=== PATIENT | female | born 1960 | race Caucasian/White ===

== ENCOUNTER → 2017-10-06 | Outpatient (CLI) | payer OTHER ==
[~2017-10-06] VITALS: Ht 152.4 cm; Wt 81.6 kg
[~2017-10-06] MED LIST: COZAAR100 MG; DICLOFENAC POTA50 MG PO; DIPROLENE AF 0.50 GM TP; FLEXERIL 10 MG PO; GILTUSS TR TAB1 EACH PO; HYZAAR 100-12.1 EACH PO; HYZAAR 100-121 UDTAB; HYZAAR 100-121 UDTAB PO; IPRAT-ALBUT 0.5-3 ML IH; LEVAQUIN500 MG PO; NORFLEX100MG PO; NORVASC10 MG PO; PRILOSEC 40 MG PO; PRILOSEC10 MG; PRILOSEC40 MG PO; PROVENTIL3 ML/2.5 M IH; SINGULAIR10 MG PO; TOBREX5 ML OP; TORADOL60 MG IM; TRAMADOL HCL50 MG PO; VIT C; VOLTAREM 50 MG PO; ZANTAC300 MG PO; ZITHROMAX500 MG PO; ZYRTEC10 MG PO; [UNRECOGNIZED DRUG - OTHER]
== END | disposition home or self-care (01) ==
LOC: PPHC 16:05
DX: Z00.8 Encounter for other general examination (principal); Z76.0 Encounter for issue of repeat prescription

== ENCOUNTER → 2017-11-23 | Emergency (ER) | payer OTHER ==
[~2017-11-23] VITALS: Ht 167.6 cm; Wt 81.2 kg
== END | disposition home or self-care (01) ==
LOC: ER 09:13
DX: R10.32 Left lower quadrant pain (principal); K58.8 Other irritable bowel syndrome; K80.80 Other cholelithiasis without obstruction

== ENCOUNTER → 2017-11-24 | Outpatient (CLI) | payer OTHER | END | disposition home or self-care (01) | LOC: PPHC 09:50 | DX: Z00.8 Encounter for other general examination (principal) ==

== ENCOUNTER 2017-11-30 11:25 | Outpatient (CLI) | payer OTHER | END 2017-11-30 11:36 | disposition home or self-care (01) | LOC: LAB 11:25 | DX: K80.10 Calculus of gallbladder with chronic cholecystitis without obstruction (principal); Z01.812 Encounter for preprocedural laboratory examination ==

== ENCOUNTER 2018-07-13 10:56 | Outpatient (CLI) | payer OTHER | END 2018-07-13 11:04 | disposition home or self-care (01) | LOC: MAMO-SONO 10:56 | DX: Z12.31 Encounter for screening mammogram for malignant neoplasm of breast (principal); N60.11 Diffuse cystic mastopathy of right breast; N60.12 Diffuse cystic mastopathy of left breast; N64.4 Mastodynia ==

== ENCOUNTER 2018-07-13 11:48 | Outpatient (CLI) | payer OTHER | END 2018-07-13 12:02 | disposition home or self-care (01) | LOC: LAB 11:48 | DX: E78.2 Mixed hyperlipidemia (principal); N39.0 Urinary tract infection, site not specified; N95.1 Menopausal and female climacteric states; D64.89 Other specified anemias; E55.9 Vitamin D deficiency, unspecified ==

== ENCOUNTER 2018-09-15 18:05 | Outpatient (CLI) | payer OTHER | END 2018-09-15 18:16 | disposition home or self-care (01) | LOC: LAB 18:05 | DX: E03.8 Other specified hypothyroidism (principal) ==

== ENCOUNTER 2019-01-25 15:30 | Outpatient (CLI) | payer OTHER | END 2019-01-25 15:32 | disposition home or self-care (01) | LOC: RAD 15:30 | DX: S93.401A Sprain of unspecified ligament of right ankle, initial encounter (principal) ==

== ENCOUNTER 2019-08-31 10:26 | Outpatient (CLI) | payer OTHER | END 2019-08-31 10:29 | disposition home or self-care (01) | LOC: MAMO-SONO 10:26 | DX: Z12.31 Encounter for screening mammogram for malignant neoplasm of breast (principal); M99.01 Segmental and somatic dysfunction of cervical region; M99.02 Segmental and somatic dysfunction of thoracic region; M99.03 Segmental and somatic dysfunction of lumbar region; M54.5 Low back pain ==

== ENCOUNTER 2019-09-07 11:27 | Outpatient (CLI) | payer OTHER | END 2019-09-07 14:44 | disposition home or self-care (01) | LOC: NUCLEAR 11:27 | DX: M81.0 Age-related osteoporosis without current pathological fracture (principal) ==

== ENCOUNTER → 2019-09-07 12:56 | Outpatient (CLI) | payer OTHER | END | disposition home or self-care (01) | LOC: LAB 12:56 | DX: I10 Essential (primary) hypertension (principal); E78.00 Pure hypercholesterolemia, unspecified; E11.9 Type 2 diabetes mellitus without complications ==

== ENCOUNTER → 2020-01-18 09:07 | Outpatient (CLI) | payer OTHER | END | disposition home or self-care (01) | LOC: LAB 09:07 | PROVIDERS: ATTEND Obstetrics & Gynecology | DX: Z01.419 Encounter for gynecological examination (general) (routine) without abnormal findings (principal); E55.9 Vitamin D deficiency, unspecified; N95.1 Menopausal and female climacteric states; N30.00 Acute cystitis without hematuria; Z72.51 High risk heterosexual behavior ==

== ENCOUNTER → 2020-05-16 08:36 | Outpatient (CLI) | payer OTHER | END | disposition home or self-care (01) | LOC: LAB 08:36 | PROVIDERS: ATTEND Internal Medicine Cardiovascular Disease | DX: E03.8 Other specified hypothyroidism (principal); E11.9 Type 2 diabetes mellitus without complications; I10 Essential (primary) hypertension; E78.2 Mixed hyperlipidemia; E55.9 Vitamin D deficiency, unspecified ==

== ENCOUNTER 2020-08-14 14:25 | Outpatient (CLI) | payer OTHER | END 2020-08-14 14:27 | disposition home or self-care (01) | LOC: PPH VACUNA 14:25 | DX: Z23 Encounter for immunization (principal) ==

== ENCOUNTER 2020-12-05 08:38 | Outpatient (CLI) | payer OTHER | END 2020-12-05 08:52 | disposition home or self-care (01) | LOC: MAMO-SONO 08:38 | PROVIDERS: ATTEND Obstetrics & Gynecology | DX: Z12.31 Encounter for screening mammogram for malignant neoplasm of breast (principal); N64.4 Mastodynia; N63 Unspecified lump in breast ==

== ENCOUNTER 2021-04-03 08:00 | Outpatient (CLI) | payer OTHER | END 2021-04-03 08:30 | disposition home or self-care (01) | LOC: PPH VACUNA 08:00 | DX: Z23 Encounter for immunization (principal) ==

== ENCOUNTER 2021-07-21 10:59 | Outpatient (CLI) | payer OTHER | END 2021-07-21 11:00 | disposition home or self-care (01) | LOC: NUCLEAR 10:59 | PROVIDERS: ATTEND Internal Medicine Cardiovascular Disease | DX: I87.2 Venous insufficiency (chronic) (peripheral) (principal) ==

== ENCOUNTER 2021-12-31 09:00 | Outpatient (CLI) | payer OTHER | END 2021-12-31 09:02 | disposition home or self-care (01) | LOC: LAB 09:00 | PROVIDERS: ATTEND Radiology Diagnostic Radiology | DX: K42.0 Umbilical hernia with obstruction, without gangrene (principal) ==

== ENCOUNTER 2022-01-07 07:56 | Outpatient (CLI) | payer OTHER | END 2022-01-07 08:15 | disposition home or self-care (01) | LOC: TOM 07:56 | DX: R10.2 Pelvic and perineal pain (principal); K52.9 Noninfective gastroenteritis and colitis, unspecified ==

== ENCOUNTER 2022-01-14 10:06 | Outpatient (CLI) | payer OTHER | END 2022-01-14 10:14 | disposition home or self-care (01) | LOC: MAMO-SONO 10:06 | PROVIDERS: ATTEND Obstetrics & Gynecology | DX: Z12.31 Encounter for screening mammogram for malignant neoplasm of breast (principal); N64.4 Mastodynia; N63 Unspecified lump in breast ==

== ENCOUNTER 2022-09-01 09:57 | Outpatient (CLI) | payer OTHER | END 2022-09-01 10:05 | disposition home or self-care (01) | LOC: SONOGRAMA 09:57 | PROVIDERS: ATTEND Internal Medicine Gastroenterology | DX: K76.0 Fatty (change of) liver, not elsewhere classified (principal); Q44.6 Cystic disease of liver; K25.3 Acute gastric ulcer without hemorrhage or perforation ==

== ENCOUNTER 2023-06-08 10:33 | Outpatient (CLI) | payer OTHER | END 2023-06-08 10:45 | disposition home or self-care (01) | LOC: SONOGRAMA 10:33 | PROVIDERS: ATTEND Internal Medicine Cardiovascular Disease | DX: R10.9 Unspecified abdominal pain (principal) ==

== ENCOUNTER 2023-06-08 13:06 | Outpatient (CLI) | payer OTHER ==
[2023-06-08 13:57] LABS: HEMATOCRIT 41.9 % (36.0-45.00); HEMOGLOBIN 14.2 g/dL (12.0-15.00); MEAN CELL VOLUME 90.3 fL (80.00-100.00); MEAN CORPUSCULAR HEMOGLOBIN 30.6 pg (27.00-32.0); MEAN CORPUSCULAR HGB CONC 33.9 g/dl (32.0-36.0); PLATELET COUNT 332 K/uL (150-450); RED BLOOD COUNT 4.64 M/uL (4.00-6.00); RED CELL DISTRIBUTION WIDTH 13.6 % (11.5-14.5)
[2023-06-08 14:11] LABS: URINE APPEARANCE Clear; URINE BACTERIA 25.1 uL (0.0-1933); URINE BILIRRUBIN Small (NEGATIVE); URINE BLOOD Small; URINE COLOR Dark Yellow; URINE EPITHELIAL CELLS 5.4 uL (0.0-38.8); URINE GLUCOSE Negative (NEGATIVE); URINE LEUKOCYTE Trace; URINE NITRATE Positive; URINE PROTEIN Trace (NEGATIVE); URINE RBC 94.4 uL (0.0-20.8); URINE WBC 11.1 uL (0.0-23.2)
[2023-06-08 14:51] LABS: BILIRUBIN TOTAL 0.7 mg/dL (0.3-1.2); CALCIUM 9.5 mg/dL (8.5-10.1); CHOL HDL RATIO 3.6 (0-5.0); CREATININE SERUM 0.86 mg/dL (0.55-1.02); GFR 66.86; GLOBULINA 3.4 G/DL (2.4-3.5); POTASSIUM 4.28 mEq/L (3.5-5.1); T4 TOTAL 10.56 UG/DL (4.8-13.9); TOTAL PROTEIN 7.4 gm/dL (6.4-8.2); TSH 1.62 uIU/mL (0.358-3.74)
== END 2023-06-08 13:10 | disposition home or self-care (01) ==
LOC: LAB 13:06
PROVIDERS: ATTEND Internal Medicine Cardiovascular Disease
DX: E03.9 Hypothyroidism, unspecified (principal); E78.2 Mixed hyperlipidemia; N39.0 Urinary tract infection, site not specified; I10 Essential (primary) hypertension; E11.9 Type 2 diabetes mellitus without complications